=== PATIENT | female | born 2005 | race Hispanic/Latino ===

== ENCOUNTER 2025-04-16 18:26 | Emergency (ER) | payer BC, MEDICAID ==
[~2025-04-16] VITALS: Ht 160 cm; Wt 48.8 kg
[~2025-04-16 18:26] MED LIST: DICY20TA2 PO; METO-296 PO; ONDA-243 PO; PANT40TA54 PO
[2025-04-16] MEDS ORDERED: AMOX1TAB16 PO (18:41)
[2025-04-16] MEDS ORDERED: ACET-66 PO (18:41)
--- NOTE | 2025-04-16 18:42 | ERN ---
ED Note History of Present Illness Stated Complaint: SORE THROAT Chief Complaint: Sore Throat Time Seen by MD: 18:31 Dictation: PATIENT IS A 20-YEAR-OLD FEMALE HERE WITH HER GRANDMOTHER WITH COMPLAINTS OF FEVER CHILLS, SORE THROAT WITH PAINFUL SWALLOWING AND SWOLLEN SOME TONSILLAR LYMPH NODE SINCE MONDAY. NO NAUSEA VOMITING NO DIARRHEA NO LOSS OF TASTE OR SMELL. SHE DOES COMPLAIN OF A FRONTAL HEADACHE. GRANDMOTHER HAS BEEN GIVING HER [id number] COLD REMEDIES HOWEVER SHE HAS NOT HAD ANY TYLENOL OR MOTRIN. SHE ALSO HAS A PRIMARY CARE DOCTOR HOWEVER HAS NOT BEEN TO SEE YOUR DOCTOR. NO NUCHAL RIGIDITY Allergies: Coded Allergies: No Known Allergies (Unverified Allergy, Unknown, 12/06/22) Home Meds Active Scripts Pantoprazole Sodium (Pantoprazole Sodium) 40 Mg Tablet.dr, 40 MG PO DAILY, #10 TAB 0 Refills Prov:GEORGES SINCLAIR MD 03/12/21 Metoclopramide HCl (Reglan) 10 Mg Tablet, 10 MG PO TIDP, #20 TAB 0 Refills Prov:GEORGES SINCLAIR MD 03/12/21 Dicyclomine HCl (Bentyl) 20 Mg Tab, 20 MG PO Q6HPRN, #20 TAB 0 Refills Prov:GEORGES SINCLAIR MD 03/12/21 Ondansetron (Ondansetron Odt) 4 Mg Tab.rapdis, 4 MG PO Q6HPRN, #20 TAB 0 Refills Prov:GEORGES SINCLAIR MD 03/12/21 Past Medical History History: Not Applicable RN Note Reviewed/Agreed w/PFSH: Yes Review of System Dictation CONSTITUTIONAL: NEGATIVE EXCEPT FOR HPI FEVER CHILLS WITH GENERALIZED MALAISE HEAD/FACE: NEGATIVE EXCEPT FOR HPI EENT: NEGATIVE EXCEPT FOR HPI SORE THROAT WITH PAINFUL SWALLOWING RESPIRATORY: NEGATIVE EXCEPT FOR HPI GASTROINTESTINAL/ABDOMINAL: NEGATIVE EXCEPT FOR HPI GENITOURINARY: NEGATIVE EXCEPT FOR HPI MUSCULOSKELETAL: NEGATIVE EXCEPT FOR HPI INTEGUMENTARY: NEGATIVE EXCEPT FOR HPI NEUROLOGICAL/PSYCH: NEGATIVE EXCEPT FOR HPI HEMATOLOGIC/LYMPHATIC: NEGATIVE EXCEPT FOR HPI ALL SYSTEMS NEGATIVE, EXCEPT NOTED ABOVE. 13 POINT REVIEW OF SYSTEMS ASSESSED AND ALL NEGATIVE EXCEPT FOR ABOVE. Physical Exam Dictation VITAL SIGNS REVIEWED GENERAL APPEARANCE: ALERT, ORIENTED X 3, MODERATE ACUTE DISTRESS, WELL DEVELOPED, NOURISHED. HEAD AND FACE: NON-TRAUMATIC. EYES: PERRL, PINK CONJUNCTIVAS, EYELID NO TRAUMA, ANTERIOR CHAMBER WITH ARCUS SENILIS. EARS: PINNAS INTACT AND NO SIGNS OF TRAUMA OR ERYTHEMA EAR CANALS CLEAR AND NO DISCHARGE TM NO ERYTHEMA NOSE: NO DISCHARGE, NO BLEEDING. OROPHARYNX: MOUTH NORMAL, TONGUE PINK, PHARYNX CLEAR, MODERATE PHARYNGEAL ERYTHEMA ERYTHEMA, TONSILS NO EXUDATES, NO ABSCESSES NOTED, MUCOUS MEMBRANE MOIST UVULA MIDLINE, VOICE IS CLEAR POSITIVE SOME TONSILLAR LYMPHADENOPATHY NECK: SUPPLE, NON-TENDER, NO THYROMEGALY, NO MASSES, NO JVD, NO BRUITS BREAST:DEFERRED CHEST:NO TENDERNESS, NO CREPITUS, NO PARADOXICAL MOVEMENT, NO RETRACTIONS LUNGS:CLEAR, WELL-VENTILATED, SYMMETRIC, NO RALES, NO WHEEZING, NO RHONCHI, NO STRIDOR, GOOD BREATH SOUNDS BILATERALLY HEART: REGULAR RATE, REGULAR RHYTHM, NO MURMUR, NO GALLOPS VASCULAR: NO PERIPHERAL EDEMA, ABDOMEN: SOFT, POSITIVE BOWEL SOUNDS, NONDISTENDED, NO GUARDING, NONTENDER, NO REBOUND, NO MASSES NO HEPATOMEGALY, NO SPLENOMEGALY, NO BURKS'S SIGN, NO HERNIAS. RECTAL: DEFERRED GENITAL: DEFERRED NEUROLOGICAL: NORMAL SPEECH, MOTOR FUNCTION INTACT, SENSORY FUNCTION INTACT MUSCULOSKELETAL: NECK NONTENDER, FULL RANGE OF MOTION, BACK NONTENDER, FULL RANGE OF MOTION, EXTREMITIES: NONTENDER, FULL RANGE OF MOTION SKIN: COLOR PINK, DRY, NO TURGOR, NO RASH, NO LACERATIONS, NO ABRASIONS, NO CONTUSIONS. LYMPHATIC: DEFERRED Results (Laboratory/Radiology) Labs Reviewed?: Yes ED Course ED Course Orders Procedure Category Date Status Time Amox/Clav 875/125mg PHA 04/16/25 Verified Tab (Augmentin 875-1 19:00 Acetaminophen 500mg PHA 04/16/25 Verified Tab (Tylenol 500mg T 19:00 1835/NO LABS OR IMAGING INDICATED. PATIENT WILL BE TREATED EMPIRICALLY FOR ACUTE PHARYNGITIS UNSPECIFIED SHE WILL BE RECEIVED AUGMENTIN 875 AND TYLENOL 1 G. DISCHARGED WITH HER GRANDMOTHER TO FOLLOW UP WITH HER PRIMARY CARE DOCTOR IN THE NEXT 1-2 DAYS. WE WILL BE PRESCRIBED TYLENOL 1000 MG EVERY 6 HOURS NEEDED FOR FEVER PAIN AUGMENTIN 875 P.O. B.I.D. FOR THE NEXT SEVEN DAYS Medical Decision Making MDM MEDICAL DISCHARGE MAKING BASED ON EMPIRIC TREATMENT FOR ACUTE PHARYNGITIS UNSPECIFIED AND FEVER. PATIENT RECEIVED AUGMENTIN 875 P.O. WITH TYLENOL 1 G P.O. WE WILL BE DISCHARGED HOME WITH A AUGMENTIN 875 B.I.D. FOR 10 DAYS TYLENOL 1 G Q.6 HOURS P.R.N. FEVER CHILLS REHYDRATION INSTRUCTIONS AND GO SEE HER PRIMARY CARE DOCTOR IN 1-2 DAYS FOR MANAGEMENT DX & DISP Disposition: Discharge Departure Impression: Primary Impression: Acute pharyngitis, unspecified Additional Impression: Fever Condition: Stable Scripts Acetaminophen (Tylenol) 500 Mg Tab 2 TAB PO Q6HPRN PRN for pain or fever, #60 TAB 0 Refills Prov: FREDDY BOUDREAUX NP 04/16/25 Amoxicillin/Potassium Clav (Amox Tr-K Clv 875-125 mg Tab) 875 Mg-125 Mg Tablet 1 EACH PO BID for 7 Days, #14 TAB 0 Refills Prov: FREDDY BOUDREAUX NP 04/16/25 Additional Instructions: FOLLOW-UP WITH PRIMARY CARE PROVIDER IN 1 TO 2 DAYS. TAKE MEDICATIONS DIRECTED HERE IN THE EMERGENCY ROOM. OKAY TO CONTINUE HOME MEDICATIONS UNLESS OTHERWISE DISCUSSED DURING YOUR VISIT IN THE EMERGENCY ROOM TODAY. RETURN TO YOUR NEAREST EMERGENCY ROOM IF SYMPTOMS WORSEN OR IF THERE IS NO IMPROVEMENT. CALL 911 IF YOU NEED IMMEDIATE ASSISTANCE. TAKE TYLENOL OR MOTRIN [id number] NEEDED AND IF NO CONTRAINDICATIONS ARE PRESENT. INCREASE ORAL HYDRATION. A WOUND CULTURE OR URINE CULTURE WAS ORDERED HERE IN THE EMERGENCY ROOM DEPARTMENT PLEASE FOLLOW-UP WITH PRIMARY CARE PROVIDER AND ADVISE THEM TO GET REPEAT PORTS FROM OUR FACILITY. IF YOU HAD ANY RICKY WRAP/SPLINTS THAT WERE APPLIED HERE, PLEASE DO NOT REMOVE THEM UNTIL YOU SEE YOUR PRIMARY CARE OR SPECIALTY. TAKE ANTIBIOTICS DIRECTED UNTIL GONE. TAKE TYLENOL EVERY 6 HOURS FOR THREE MORE DOSES. INCREASE YOUR FLUID INTAKE. NO SCHOOL OR WORK UNTIL MEDICALLY CLEARED BACK BY YOUR PRIMARY CARE DOCTOR TOMORROW. Referrals: SHERICE ROSENTHAL MD (PCP) Time of Disposition: 18:39 I have reviewed the case, and I agree with, Diagnosis and Plan FREDDY BOUDREAUX NP Apr 16, 2025 18:42
[2025-04-16 19:01] VITALS: BP 124/75; PULSE 92; RESP 18; TEMP 98.7; O2SAT 97
[2025-04-16] MEDS: AMOX/CLAV 875/125MG TAB PO SCH (19:05)
== END 2025-04-16 19:09 | disposition home or self-care (01) ==
LOC: EDH 18:26
DX: J02.9 Acute pharyngitis, unspecified (principal); R50.9 Fever, unspecified; Z79.899 Other long term (current) drug therapy
CPT/HCPCS: 99283